=== PATIENT | female | born 1960 | race Caucasian/White ===

== ENCOUNTER 2016-12-29 15:13 | Emergency (ER) | payer BC ==
[2016-12-29 15:29] VITALS: TEMP 98.7
--- NOTE | 2016-12-29 15:46 | ED ---
Abdominal Pain HPI - General Chief Complaint: Abdominal Pain Stated Complaint: ABdominal Pain Time Seen by Provider: 12/29/16 15:31 Source: patient Mode of arrival: ambulatory Limitations: no limitations - History of Present Illness Initial Comments: Barbara is a 56-year-old female with a past medical history of diverticulitis who presents to the emergency department for evaluation of left lower quadrant abdominal pain for 3 days duration. Patient reports that during last week she had 2 days of left lower quadrant abdominal pain, however that resolved. She reports that on Wednesday she again developed abdominal pain which is sharp in nature located in the left lower quadrant with no radiation. That her pain is persistent since Wednesday. She can identify no relieving factors to the pain but reports it is worse with any palpation or movement. She reports decreased oral intake and decreased appetite. She states that she's been having bowel movements normal in caliber and consistency however she has noted dark black discoloration of her stool recently. She denies taking any iron supplementation , Pepto or eating any foods that she can think of that would cause this discoloration. Patient reports she had a colonoscopy a few years ago which was normal and was advised she needs to follow-up in 10 years. She has never had endoscopy in the past. She denies any history of GI bleed in the past. Patient denies any dysuria, hematuria or history of kidney stones. She denies any fevers, chills, nausea or vomiting. She states that she's been able to keep down her home medications and is drinking plenty of fluids to stay hydrated. - Related Data Home Medications Medication Instructions Recorded Confirmed Ascorbic Acid [Vitamin C] 500 mg PO W/SUPPER 12/29/16 12/29/16 Calcium Carbonate [Calcium] 600 mg PO W/SUPPER 12/29/16 12/29/16 Cholecalciferol (Vitamin D3) 2,000 unit PO W/SUPPER 12/29/16 12/29/16 [Vitamin D3] Cyanocobalamin (Vitamin B-12) 1,000 mcg PO W/SUPPER 12/29/16 12/29/16 [Vitamin B-12] Fish Oil/Dha/Epa [Fish Oil 1,200 1 cap PO W/SUPPER 12/29/16 12/29/16 mg Fish Oil] Lisinopril-Hctz 10-12.5 mg 1 tab PO DAILY 12/29/16 12/29/16 [Zestoretic 10-12.5] Multivitamins, Thera [Multivitamin 1 tab PO W/SUPPER 12/29/16 12/29/16 (formulary)] Omeprazole 20 mg PO DAILY 12/29/16 12/29/16 Sertraline [Zoloft] 50 mg PO DAILY 12/29/16 12/29/16 Previous Rx's Medication Instructions Recorded Ciprofloxacin HCl [Cipro] 500 mg PO Q12HR #20 tablet 12/29/16 HYDROcodone/APAP 5-325MG [[place] 1 tab PO Q6HR PRN #12 tab 12/29/16 5-325] Sennosides-Docusate Sodium 1 tab PO DAILY #10 tablet 12/29/16 [Senokot-S] metroNIDAZOLE [Flagyl] 500 mg PO QID #40 tab 12/29/16 Allergies Allergy/AdvReac Type Severity Reaction Status Date / Time No Known Allergies Allergy Verified 12/29/16 15:53 Review of Systems ROS Statement: Those systems with pertinent positive or pertinent negative responses have been documented in the HPI. ROS Other: All systems not noted in ROS Statement are negative. Constitutional: Denies: fever, chills ENT: Denies: throat pain Respiratory: Denies: cough Cardiovascular: Denies: chest pain, palpitations Endocrine: Reports: fatigue Gastrointestinal: Reports: abdominal pain, melena. Denies: nausea, vomiting, diarrhea, constipation Genitourinary: Denies: urgency, dysuria, frequency, hematuria Musculoskeletal: Denies: back pain Skin: Denies: rash, lesions Neurological: Denies: headache, weakness Psychiatric: Denies: anxiety, depression Hematological/Lymphatic: Denies: easy bleeding, easy bruising Past Medical History Past Medical History: Hypertension History of Any Multi-Drug Resistant Organisms: None Reported Past Surgical History: Cholecystectomy, Hysterectomy Additional Past Surgical History / Comment(s): jaw surgery Past Psychological History: No Psychological Hx Reported Smoking Status: Current every day smoker Past Alcohol Use History: Rare Past Drug Use History: None Reported General Exam Limitations: no limitations General appearance: alert, in no apparent distress Head exam: Present: atraumatic, normocephalic, normal inspection Eye exam: Present: normal appearance, PERRL, EOMI. Absent: scleral icterus, conjunctival injection, periorbital swelling ENT exam: Present: normal exam, mucous membranes moist Neck exam: Present: normal inspection. Absent: tenderness, meningismus, lymphadenopathy Respiratory exam: Present: normal lung sounds bilaterally. Absent: respiratory distress, wheezes, rales, rhonchi, stridor Cardiovascular Exam: Present: regular rate, normal rhythm, normal heart sounds. Absent: systolic murmur, diastolic murmur, rubs, gallop, clicks GI/Abdominal exam: Present: soft, tenderness (LLQ), normal bowel sounds. Absent : distended, guarding, rebound, rigid Rectal exam: Present: normal inspection, normal rectal tone, decreased rectal tone, heme (-) stool. Absent: heme (+) stool, bloody stool, fecal impaction, hemorrhoids, mass, tenderness Extremities exam: Present: normal inspection, full ROM, normal capillary refill. Absent: tenderness, pedal edema, joint swelling, calf tenderness Back exam: Present: normal inspection. Absent: tenderness Neurological exam: Present: alert, oriented X3, CN II-XII intact Psychiatric exam: Present: normal affect, normal mood Skin exam: Present: warm, dry, intact, normal color. Absent: rash Course Vital Signs 12/29/16 12/29/16 15:27 17:23 Temperature 98.7 F Pulse Rate 83 81 Respiratory 20 16 Rate Blood Pressure 148/69 134/67 O2 Sat by Pulse 99 99 Oximetry - Reevaluation(s) Reevaluation #1: Patient reevaluated, sitting comfortably in bed. CT results were discussed with the patient, advised that she has an uncomplicated case of sigmoid diverticulitis. Patient states that she feels comfortable being discharged home with oral antibiotics and pain medications. States she has been able to tolerate oral intake without difficulty further 3 days despite the pain. 12/29/16 17:41 Reevaluation #2: Normal rectal exam with heme-negative stool 12/29/16 17:52 Medical Decision Making - Medical Decision Making The patient was seen and evaluated, vital signs were reviewed History was obtained from the patient History and physical exam are concerning for diverticulitis, labs and CT were ordered Condition declined analgesia at initial presentation Upon being transferred to CT patient states her pain is worsening and she would like something for analgesia. IV morphine ordered Labs and CT reviewed, CT reveals acute sigmoid diverticulitis without perforation or abscess The results were discussed with the patient who expresses understanding of the diagnosis that she has experienced diverticulitis in the past. Patient states she feels she is well enough to be discharged home with oral antibiotics and pain medication. I advised the patient that while taking pain medication she needs to take a stool softener to prevent development of any constipation. Patient is breast understanding of this. Russians pertaining to care were answered to the best of my ability patient was discharged home in stable condition with prescriptions for Cipro, Flagyl, [place] and Senokot. - Lab Data Result diagrams: 12/29/16 15:45 12/29/16 15:45 Lab Results 12/29/16 12/29/16 12/29/16 Range/Units 15:45 15:45 15:45 WBC 12.1 H (3.8-10.6) k/uL RBC 4.56 (3.80-5.40) m/uL Hgb 13.2 (11.4-16.0) gm/dL Hct 39.7 (34.0-46.0) % MCV 87.0 (80.0-100.0) fL MCH 29.0 (25.0-35.0) pg MCHC 33.4 (31.0-37.0) g/dL RDW 13.9 (11.5-15.5) % Plt Count 303 (150-450) k/uL Neutrophils % 79 % Lymphocytes % 14 % Monocytes % 5 % Eosinophils % 1 % Basophils % 0 % Neutrophils # 9.5 H (1.3-7.7) k/uL Lymphocytes # 1.7 (1.0-4.8) k/uL Monocytes # 0.6 (0-1.0) k/uL Eosinophils # 0.1 (0-0.7) k/uL Basophils # 0.1 (0-0.2) k/uL Sodium 139 (137-145) mmol/L Potassium 3.9 (3.5-5.1) mmol/L Chloride 105 (98-107) mmol/L Carbon Dioxide 24 (22-30) mmol/L Anion Gap 10 mmol/L BUN 19 H (7-17) mg/dL Creatinine 0.68 (0.52-1.04) mg/dL Est GFR (MDRD) Af Amer >60 (>60 ml/min/1.73 sqM) Est GFR (MDRD) Non-Af >60 (>60 ml/min/1.73 sqM) Glucose 85 (74-99) mg/dL Calcium 9.1 (8.4-10.2) mg/dL Urine Color Yellow Urine Appearance Clear (Clear) Urine pH 5.5 (5.0-8.0) Ur Specific [place] 1.025 (1.001-1.035) Urine Protein Trace H (Negative) Urine Glucose (UA) Negative (Negative) Urine Ketones Negative (Negative) Urine Blood Negative (Negative) Urine Nitrite Negative (Negative) Urine Bilirubin Negative (Negative) Urine Urobilinogen <2.0 (<2.0) mg/dL Ur Leukocyte Esterase Negative (Negative) Stool Occult Blood (Negative) 12/29/16 Range/Units 16:50 WBC (3.8-10.6) k/uL RBC (3.80-5.40) m/uL Hgb (11.4-16.0) gm/dL Hct (34.0-46.0) % MCV (80.0-100.0) fL MCH (25.0-35.0) pg MCHC (31.0-37.0) g/dL RDW (11.5-15.5) % Plt Count (150-450) k/uL Neutrophils % % Lymphocytes % % Monocytes % % Eosinophils % % Basophils % % Neutrophils # (1.3-7.7) k/uL Lymphocytes # (1.0-4.8) k/uL Monocytes # (0-1.0) k/uL Eosinophils # (0-0.7) k/uL Basophils # (0-0.2) k/uL Sodium (137-145) mmol/L Potassium (3.5-5.1) mmol/L Chloride (98-107) mmol/L Carbon Dioxide (22-30) mmol/L Anion Gap mmol/L BUN (7-17) mg/dL Creatinine (0.52-1.04) mg/dL Est GFR (MDRD) Af Amer (>60 ml/min/1.73 sqM) Est GFR (MDRD) Non-Af (>60 ml/min/1.73 sqM) Glucose (74-99) mg/dL Calcium (8.4-10.2) mg/dL Urine Color Urine Appearance (Clear) Urine pH (5.0-8.0) Ur Specific [place] (1.001-1.035) Urine Protein (Negative) Urine Glucose (UA) (Negative) Urine Ketones (Negative) Urine Blood (Negative) Urine Nitrite (Negative) Urine Bilirubin (Negative) Urine Urobilinogen (<2.0) mg/dL Ur Leukocyte Esterase (Negative) Stool Occult Blood Negative (Negative) Disposition Clinical Impression: Diverticulitis Disposition: HOME SELF-CARE Condition: Good Instructions: Diverticulitis (ED) Prescriptions: Ciprofloxacin HCl [Cipro] 500 mg PO Q12HR #20 tablet HYDROcodone/APAP 5-325MG [[place] 5-325] 1 tab PO Q6HR PRN #12 tab PRN Reason: Pain metroNIDAZOLE [Flagyl] 500 mg PO QID #40 tab Sennosides-Docusate Sodium [Senokot-S] 1 tab PO DAILY #10 tablet Referrals: Wilberto Friedman MD [Primary Care Provider] - 1-2 days
[2016-12-29] MEDS ORDERED: RX INFO: IV CONTRAST WAS GIVEN 1 EACH MISC MISCELLANE PRN (15:47)
[2016-12-29] MEDS ORDERED: SODIUM CHLORIDE 0.9% 1,000 ML IV ONE (15:47)
[2016-12-29 16:04] LABS: Appearance,Urine Clear (Clear); Bilirubin,Urine Negative (Negative); Glucose,Urine (UA) Negative (Negative); Ketones,Urine Negative (Negative); Leukocyte Esterase,Urine Negative (Negative); Nitrite,Urine Negative (Negative); PH, Urine 5.5 (5.0-8.0); Protein,Urine Trace (Negative); Specific Gravity,Urine 1.025 (1.001-1.035); UA Billing (MACRO vs. MICRO) CHEM; Urobilinogen,Urine <2.0 mg/dL (<2.0)
[2016-12-29 16:05] LABS: Basophils # (A) 0.1 k/uL (0-0.2); Basophils % (A) 0 %; CH 29.1; CHCM 33.7; Eosinophils # (A) 0.1 k/uL (0-0.7); Eosinophils % (A) 1 %; HCT 39.7 % (34.0-46.0); HDW 2.36; HGB 13.2 gm/dL (11.4-16.0); Luc # (Auto) 0.13; Luc % (Auto) 1; Lymphocytes # (A) 1.7 k/uL (1.0-4.8); Lymphocytes % (A) 14 %; MCHC 33.4 g/dL (31.0-37.0); Mean Platelet Volume 7.3; Monocytes # (A) 0.6 k/uL (0-1.0); Monocytes % (A) 5 %; Neutrophils # (A) 9.5 k/uL (1.3-7.7); Neutrophils % (A) 79 %; RBC 4.56 m/uL (3.80-5.40); RDW 13.9 % (11.5-15.5); WBC 12.1 k/uL (3.8-10.6); WBC (Perox) 11.43
[2016-12-29 16:12] LABS: Anion Gap 10 mmol/L; Blood Urea Nitrogen 19 mg/dL (7-17); Calcium 9.1 mg/dL (8.4-10.2); Carbon Dioxide 24 mmol/L (22-30); Chloride 105 mmol/L (98-107); Glucose 85 mg/dL (74-99); Non-African American GFR(MDRD) >60 (>60 ml/min/1.73 sqM); Potassium 3.9 mmol/L (3.5-5.1); Sodium 139 mmol/L (137-145)
[2016-12-29] MEDS ORDERED: MORPHINE SULFATE 4 MG/ML SYRINGE IV ONE (16:55)
--- NOTE | 2016-12-29 17:04 | CT ---
EXAMINATION TYPE: CT abdomen pelvis w con DATE OF EXAM: 12/29/2016 COMPARISON: NONE HISTORY: LLQ pain with dark stool CT DLP: 2615.1 mGycm Automated exposure control for dose reduction was used. TECHNIQUE: Helical acquisition of images was performed from the lung bases through the pelvis. CONTRAST: Performed without Oral Contrast and with IV Contrast, patient injected with 100 mL of Omnipaque 300. FINDINGS: Lung bases are clear. There is no pleural effusion. Liver spleen pancreas appear normal. Bile ducts are not dilated. There are clips from cholecystectomy . There is no adrenal mass. Kidneys show satisfactory contrast opacification. There is no hydronephrosi s. There is some fat stranding and inflammatory changes in the proximal sigmoid colon. There are nume masha sigmoid diverticula. Bladder distends smoothly. There is no free fluid in the pelvis. Appendix a ppears normal. There is no retroperitoneal adenopathy. I see no bony destructive process. Lumbar spine is intact. IMPRESSION: INFLAMMATORY CHANGES AROUND THE PROXIMAL SIGMOID COLON WITH SOME WALL THICKENING CONSISTENT WITH ACUT E DIVERTICULITIS. NO ABSCESS. NUMEROUS SIGMOID DIVERTICULA.
[2016-12-29 17:23] VITALS: BP 134/67; PULSE 81; RESP 16
[2016-12-29] MEDS ORDERED: CIPROFLOXACIN HCL 500 MG TAB PO STA (17:26)
[2016-12-29] MEDS ORDERED: metroNIDAZOLE 500 MG TAB PO STA (17:26)
== END 2016-12-29 18:23 | disposition home or self-care (01) ==
LOC: EC 15:13
DX: K57.32 Diverticulitis of large intestine without perforation or abscess without bleeding (principal); I10 Essential (primary) hypertension; F17.200 Nicotine dependence, unspecified, uncomplicated; Z90.49 Acquired absence of other specified parts of digestive tract; Z90.710 Acquired absence of both cervix and uterus; Z79.899 Other long term (current) drug therapy
CPT/HCPCS: 36415; 80048; 85025; 82272; 81003; 74177; 99284; 96374; 96361 ×2; J2270; Q9967

== ENCOUNTER → 2017-03-15 | Outpatient (CLI) | payer BC ==
--- NOTE | 2017-03-15 11:27 | MM ---
Reason for exam: screening (asymptomatic). Last mammogram was performed 2 years and 10 months ago. History: Patient is postmenopausal and is nulliparous. Physical Findings: A clinical breast exam by your physician is recommended on an annual basis and results should be correlated with mammographic findings. MG Screening Mammo w CAD Bilateral CC and MLO view(s) were taken. Prior study comparison: May 03, 2014, bilateral MG screening mammo w CAD. There are scattered fibroglandular densities. There is no discrete abnormality. ASSESSMENT: Negative, BI-RAD 1 RECOMMENDATION: Routine screening mammogram of both breasts in 1 year.
== END | disposition home or self-care (01) ==
LOC: RADMAMWWP 07:05
PROVIDERS: ATTEND Family Medicine
DX: Z12.31 Encounter for screening mammogram for malignant neoplasm of breast (principal)

== ENCOUNTER → 2018-08-08 | Outpatient (CLI) | payer BC ==
--- NOTE | 2018-08-08 14:01 | MM ---
Reason for exam: screening (asymptomatic). Last mammogram was performed 1 year and 5 months ago. History: Patient is postmenopausal and is nulliparous. Physical Findings: A clinical breast exam by your physician is recommended on an annual basis and results should be correlated with mammographic findings. MG Screening Mammo w CAD Bilateral CC and MLO view(s) were taken. Prior study comparison: March 15, 2017, bilateral MG screening mammo w CAD. May 03, 2014, bilateral MG screening mammo w CAD. There are scattered fibroglandular densities. No significant changes when compared with prior studies. ASSESSMENT: Benign, BI-RAD 2 RECOMMENDATION: Routine screening mammogram of both breasts in 1 year.
== END | disposition home or self-care (01) ==
LOC: RADMAMWWP 06:53
PROVIDERS: ATTEND Family Medicine
DX: Z12.31 Encounter for screening mammogram for malignant neoplasm of breast (principal)
CPT/HCPCS: 77067

== ENCOUNTER → 2018-11-10 | Outpatient (CLI) | payer BC ==
--- NOTE | 2018-11-10 16:36 | CT ---
EXAMINATION TYPE: CT abdomen pelvis w con DATE OF EXAM: 11/10/2018 HISTORY: Left lower quadrant abdominal pain and constipation. CT DLP: 1722mGycm Automated Exposure Control for Dose Reduction was Utilized. CONTRAST: CT scan of the abdomen and pelvis is performed with IV Contrast, patient injected with 100ml mL of Is ovue 300. COMPARISON: 05/27/2017 FINDINGS: LUNG BASES: Reticular nodular opacity is seen within the lingula. Minimal right midlung atelectasis. LIVER/GB: Hepatic parenchyma is diffusely hypoattenuated in comparison to that of the spleen, most co mmonly seen in hepatic steatosis. This finding limits evaluation for hepatic masses. No gross evidenc e of hepatic mass is seen. No intrahepatic biliary ductal dilatation. Gallbladder surgically absent. PANCREAS: No significant abnormality is seen. SPLEEN: No significant abnormality is seen. ADRENALS: No significant abnormality is seen. KIDNEYS: There is a nonobstructing right renal calculus measuring 4 mm. Otherwise the kidneys enhance and excrete symmetrically without hydronephrosis. BOWEL: There is long segment sigmoid colonic wall thickening and pericolic fat stranding surrounding numerous diverticula. No pericolonic fluid collection to suggest abscess or pneumoperitoneum. No dila kane large or small bowel. Appendix is opacified and within normal limits. The UTERUS/ADNEXA: Uterus appears surgically absent. LYMPH NODES: No greater than 1cm abdominal or pelvic lymph nodes are appreciated. OSSEOUS STRUCTURES: Mild multilevel degenerative changes of the spine. IMPRESSION: 1. Acute infectious lingular pneumonia is suspected with less likely consideration of inflammatory pn eumonitis. 2. Acute uncomplicated sigmoid diverticulitis. No pneumoperitoneum or surrounding abscess. 3. Hepatic steatosis. 4. Nonobstructing right renal calculus.
== END | disposition home or self-care (01) ==
LOC: RADCTMAIN 14:23
PROVIDERS: ATTEND Physician Assistant
DX: K57.32 Diverticulitis of large intestine without perforation or abscess without bleeding (principal); N20.0 Calculus of kidney; K76.0 Fatty (change of) liver, not elsewhere classified
CPT/HCPCS: 74177; Q9967

== ENCOUNTER → 2020-06-17 | Outpatient (CLI) | payer BC ==
--- NOTE | 2020-06-17 13:52 | CT ---
EXAMINATION TYPE: CT abdomen pelvis w con DATE OF EXAM: 06/17/2020 HISTORY: Pelvic pain x 6 days. Nausea, vomiting, diarrhea and painful urination. CT DLP: 2052.4mGycm Automated Exposure Control. Dose Reduction was Utilized. CONTRAST: CT scan of the abdomen and pelvis is performed with IV Contrast, patient injected with 100 mL of Isov ue M300. COMPARISON: CT abdomen and pelvis November 10, 2018 FINDINGS: LUNG BASES: Stable deformity anterolateral right rib axial image 4. LIVER/GB: Cholecystectomy clips are redemonstrated. Liver remains diffusely low dense. PANCREAS: No significant abnormality is seen. SPLEEN: No significant abnormality is seen. ADRENALS: No significant abnormality is seen. KIDNEYS: Symmetric cortical medullary uptake and excretion without hydronephrosis seen bilaterally. S table 3 to 4 mm nonobstructing calculus right kidney lower pole level axial image 38 BOWEL: Oral contrast extends to the level of left colon on current study. Sigmoid colonic diverticulo sis redemonstrated. There is focal mild/moderate ill-defined fluid and fat stranding in the central u pper pelvis axial image 60 at level of the proximal sigmoid colon consistent with recurrent uncomplic ated acute moderate diverticulitis. No free air. No well-formed fluid collection. UTERUS/ADNEXA: Uterus surgically absent or markedly atrophic. Stable left-sided pelvic phlebolith on axial image 69. LYMPH NODES: No greater than 1cm abdominal or pelvic lymph nodes are appreciated. OSSEOUS STRUCTURES: Mild height loss along the superior T11 endplate. OTHER: No significant additional abnormality is seen. IMPRESSION: CT findings consistent with fairly moderate recurrent uncomplicated acute diverticulitis proximal sigmoid colon in the anterior upper pelvis as detailed above.
== END | disposition home or self-care (01) ==
LOC: RADCTMAIN 11:15
PROVIDERS: ATTEND Nurse Practitioner Family
DX: R10.32 Left lower quadrant pain (principal)
CPT/HCPCS: 74177; Q9967 ×2

== ENCOUNTER 2020-07-19 08:26 | Emergency (ER) | payer BC ==
[2020-07-19] MEDS ORDERED: SODIUM CHLORIDE 0.9% 1,000 ML IV STA (08:45)
[2020-07-19] MEDS ORDERED: ONDANSETRON 4 MG/2 ML VIAL IVP STA (08:45)
[2020-07-19] MEDS ORDERED: MORPHINE SULFATE 4 MG/ML SYRINGE IV STA (08:45)
[2020-07-19 08:59] VITALS: BP 168/87; PULSE 80; RESP 18; TEMP 98.5
[2020-07-19 09:02] LABS: Basophils # (A) 0.1 k/uL (0-0.2); Basophils % (A) 1 %; Eosinophils # (A) 0.2 k/uL (0-0.7); Eosinophils % (A) 2 %; HCT 38.2 % (34.0-46.0); HGB 13.1 gm/dL (11.4-16.0); Lymphocytes # (A) 1.7 k/uL (1.0-4.8); Lymphocytes % (A) 16 %; MCH 29.2 pg (25.0-35.0); MCHC 34.2 g/dL (31.0-37.0); MCV 85.5 fL (80.0-100.0); Mean Platelet Volume 7.5; Monocytes # (A) 0.5 k/uL (0-1.0); Monocytes % (A) 5 %; Neutrophils # (A) 7.7 k/uL (1.3-7.7); Neutrophils % (A) 76 %; Platelet Count 226 k/uL (150-450); RBC 4.47 m/uL (3.80-5.40); RDW 13.4 % (11.5-15.5); WBC 10.2 k/uL (3.8-10.6)
[2020-07-19 09:15] LABS: ALT 26 U/L (4-34); AST 25 U/L (14-36); African American GFR (CKD) >90 (>60 ml/min/1.73 sqM); Albumin 4.2 g/dL (3.5-5.0); Alkaline Phosphatase 85 U/L (38-126); Amylase 55 U/L (30-110); Anion Gap 8 mmol/L; Blood Urea Nitrogen 23 mg/dL (7-17); Calcium 9.1 mg/dL (8.4-10.2); Carbon Dioxide 25 mmol/L (22-30); Chloride 104 mmol/L (98-107); Glucose 163 mg/dL (74-99); Lipase 112 U/L (23-300); Non-African American GFR(CKD) >90 (>60 ml/min/1.73 sqM); Potassium 3.7 mmol/L (3.5-5.1); Sodium 137 mmol/L (137-145); Total Bilirubin 0.5 mg/dL (0.2-1.3); Total Protein 6.8 g/dL (6.3-8.2)
--- NOTE | 2020-07-19 09:43 | CT ---
EXAMINATION TYPE: CT abdomen pelvis w con DATE OF EXAM: 07/19/2020 HISTORY: LLQ pain CT DLP: 2150.3mGycm Automated Exposure Control for Dose Reduction was Utilized. CONTRAST: CT scan of the abdomen and pelvis is performed without oral but with IV Contrast, patient injected wi th 100 mL of Isovue 300. COMPARISON: CT abdomen and pelvis June 17, 2020 FINDINGS: LUNG BASES: No significant abnormality is appreciated. LIVER/GB: Cholecystectomy clips. Visualized liver is low dense consistent with diffuse fatty infiltra tion. PANCREAS: No significant abnormality is seen. SPLEEN: No significant abnormality is seen. ADRENALS: No significant abnormality is seen. KIDNEYS: Subcentimeter lesion medially upper pole left kidney too small to further characterize. Symm etric cortical uptake and excretion without hydronephrosis seen bilaterally. There is a 5 mm nonobstr ucting calculus lower pole right kidney coronal image 66 redemonstrated. Few scattered bilateral pelv ic phleboliths. BOWEL: Suboptimal evaluation bowel without enteric contrast. No suspicious small large bowel dilatati on. Some scattered colonic diverticula greatest in the sigmoid colon. [id number] ill-defined fl uid and fat stranding with mild/moderate wall thickening in the left upper pelvis at junction of left and sigmoid colon. No free air. No well-formed fluid collection. UTERUS/ADNEXA: Uterus surgically absent. Few scattered small pelvic phleboliths bilaterally redemonst rated. LYMPH NODES: No greater than 1cm abdominal or pelvic lymph nodes are appreciated. OSSEOUS STRUCTURES: No significant abnormality is seen. OTHER: No significant additional abnormality is seen. IMPRESSION: There is recurrent mild to moderate uncomplicated acute diverticulitis in the left upper pelvis at junction of left and sigmoid colon. The area is slightly more proximal in location to site of acute diverticulitis on recent CT.
--- NOTE | 2020-07-19 09:59 | ED ---
Abdominal Pain HPI - General Chief Complaint: Abdominal Pain Stated Complaint: Abd Pain Time Seen by Provider: 07/19/20 08:35 Source: patient, RN notes reviewed Mode of arrival: ambulatory Limitations: no limitations - History of Present Illness Initial Comments: Patient is a 59-year-old female that presented to the emergency room complaining of left lower quadrant pain. She did note that she has a history of diverticulitis. She did have a flareup about 4 weeks ago and refused admission. She stated that she took all the antibiotics and it went away but she is currently experiencing a flareup. She has also complained of nausea vomiting diarrhea. She said her pain is about 8 out of 10 currently this been constant since last night. She stated that nothing helps the pain nothing made the pain worse. She was in no apparent distress or pain while sitting in the bed. patient noted no blood. She denied any chest pain lightheadedness dizziness shortness of breath fever fatigue chills. Patient stated to pattern chart writer and nurse that she did not want to be admitted at all if possible. - Related Data Home Medications Medication Instructions Recorded Confirmed Ascorbic Acid [Vitamin C] 500 mg PO DAILY 12/29/16 07/19/20 Calcium Carbonate [Calcium] 600 mg PO DAILY 12/29/16 07/19/20 Cyanocobalamin (Vitamin B-12) 1,000 mcg PO DAILY 12/29/16 07/19/20 [Vitamin B-12] Lisinopril-Hctz 10-12.5 mg 1 tab PO DAILY 12/29/16 07/19/20 [Zestoretic 10-12.5] Multivitamins, Thera [Multivitamin 1 tab PO W/SUPPER 12/29/16 07/19/20 (formulary)] Omeprazole 20 mg PO DAILY 12/29/16 07/19/20 Sertraline [Zoloft] 50 mg PO DAILY 12/29/16 07/19/20 L.acidoph,Paracasei, B.lactis 2 cap PO DAILY 07/19/20 07/19/20 [Probiotic] Previous Rx's Medication Instructions Recorded Amoxic-Pot Clav 875-125Mg 1 tab PO Q12HR 10 Days #20 tab 07/19/20 [Augmentin 875-125] Allergies Allergy/AdvReac Type Severity Reaction Status Date / Time No Known Allergies Allergy Verified 07/19/20 08:33 Review of Systems ROS Statement: Those systems with pertinent positive or pertinent negative responses have been documented in the HPI. ROS Other: All systems not noted in ROS Statement are negative. Past Medical History Past Medical History: Hypertension Additional Past Medical History / Comment(s): diverticulitis History of Any Multi-Drug Resistant Organisms: None Reported Past Surgical History: Cholecystectomy, Hysterectomy Additional Past Surgical History / Comment(s): jaw surgery Past Psychological History: No Psychological Hx Reported Smoking Status: Vaper Past Alcohol Use History: Occasional, Rare Past Drug Use History: None Reported General Exam Limitations: no limitations General appearance: alert, in no apparent distress, obese Head exam: Present: atraumatic, normocephalic, normal inspection Eye exam: Present: normal appearance, PERRL, EOMI. Absent: scleral icterus, conjunctival injection, periorbital swelling ENT exam: Present: normal exam, mucous membranes moist Neck exam: Present: normal inspection. Absent: tenderness, meningismus, lymphadenopathy Respiratory exam: Present: normal lung sounds bilaterally. Absent: respiratory distress, wheezes, rales, rhonchi, stridor Cardiovascular Exam: Present: regular rate, normal rhythm, normal heart sounds. Absent: systolic murmur, diastolic murmur, rubs, gallop, clicks GI/Abdominal exam: Present: soft, tenderness (Left lower quadrant, epigastric that radiated to left lower quadrant.), hypoactive bowel sounds. Absent: diste nded, guarding, rebound, rigid Extremities exam: Present: normal inspection, full ROM, normal capillary refill. Absent: tenderness, pedal edema, joint swelling, calf tenderness Back exam: Present: normal inspection Neurological exam: Present: alert, oriented X3, CN II-XII intact Psychiatric exam: Present: normal affect, normal mood Skin exam: Present: warm, dry, intact, normal color. Absent: rash Course Vital Signs 07/19/20 08:31 Temperature 98.5 F Pulse Rate 80 Respiratory 18 Rate Blood Pressure 168/87 O2 Sat by Pulse 98 Oximetry Medical Decision Making - Medical Decision Making 59-year-old female complaining of an acute diverticulitis flareup. Patient has a history of diverticulitis. Labs ordered: Unremarkable CT of the abdomen with contrast ordered Pain medication, nausea medication given 1 L of normal saline given as bolus. Case discussed with Dr. Jones, was decided patient discharged home with antibiotics. - Lab Data Result diagrams: 07/19/20 08:51 07/19/20 08:51 Lab Results 07/19/20 07/19/20 Range/Units 08:51 08:51 WBC 10.2 (3.8-10.6) k/uL RBC 4.47 (3.80-5.40) m/uL Hgb 13.1 (11.4-16.0) gm/dL Hct 38.2 (34.0-46.0) % MCV 85.5 (80.0-100.0) fL MCH 29.2 (25.0-35.0) pg MCHC 34.2 (31.0-37.0) g/dL RDW 13.4 (11.5-15.5) % Plt Count 226 (150-450) k/uL MPV 7.5 Neutrophils % 76 % Lymphocytes % 16 % Monocytes % 5 % Eosinophils % 2 % Basophils % 1 % Neutrophils # 7.7 (1.3-7.7) k/uL Lymphocytes # 1.7 (1.0-4.8) k/uL Monocytes # 0.5 (0-1.0) k/uL Eosinophils # 0.2 (0-0.7) k/uL Basophils # 0.1 (0-0.2) k/uL Sodium 137 (137-145) mmol/L Potassium 3.7 (3.5-5.1) mmol/L Chloride 104 (98-107) mmol/L Carbon Dioxide 25 (22-30) mmol/L Anion Gap 8 mmol/L BUN 23 H (7-17) mg/dL Creatinine 0.69 (0.52-1.04) mg/dL Est GFR (CKD-EPI)AfAm >90 (>60 ml/min/1.73 sqM) Est GFR (CKD-EPI)NonAf >90 (>60 ml/min/1.73 sqM) Glucose 163 H (74-99) mg/dL Calcium 9.1 (8.4-10.2) mg/dL Total Bilirubin 0.5 (0.2-1.3) mg/dL AST 25 (14-36) U/L ALT 26 (4-34) U/L Alkaline Phosphatase 85 (38-126) U/L Total Protein 6.8 (6.3-8.2) g/dL Albumin 4.2 (3.5-5.0) g/dL Amylase 55 (30-110) U/L Lipase 112 (23-300) U/L - Radiology Data Radiology results: report reviewed, image reviewed There is recurrent mild to moderate uncomplicated acute diverticulitis in the left upper pelvis at junction of left and sigmoid colon. The area is slightly more proximal location decided of acute diverticulitis on recent CT. Disposition Clinical Impression: Abdominal pain, Diverticulitis Disposition: HOME SELF-CARE Instructions (If sedation given, give patient instructions): Abdominal Pain (ED), Diverticulitis (ED), Diverticulitis Diet (ED) Additional Instructions: Please return to the Emergency Department if symptoms worsen or any other concerns. Clear liquid diet for the next 2 days. Return if symptoms worsen or remain constant. Take antibiotics as instructed. Follow diverticulitis diet handout. Follow with primary care 1-2 days. Prescriptions: Amoxic-Pot Clav 875-125Mg [Augmentin 875-125] 1 tab PO Q12HR 10 Days #20 tab Is patient prescribed a controlled substance at d/c from ED?: No Referrals: Wilberto Friedman MD [Primary Care Provider] - 1-2 days Time of Disposition: 10:32
== END 2020-07-19 10:56 | disposition home or self-care (01) ==
LOC: EC 08:26
DX: K57.32 Diverticulitis of large intestine without perforation or abscess without bleeding (principal); I10 Essential (primary) hypertension; F17.290 Nicotine dependence, other tobacco product, uncomplicated; Z79.899 Other long term (current) drug therapy; Z90.49 Acquired absence of other specified parts of digestive tract; Z90.710 Acquired absence of both cervix and uterus
CPT/HCPCS: 36415; 80053; 82150; 83690; 85025; 74177; 99284; 96374; 96375; 96361; J2270; J2405; Q9967

== ENCOUNTER 2021-03-21 07:18 | Day surgery (SDC) | payer BC ==
[2021-03-19 14:09] VITALS: BMI 43.2
[~2021-03-21 07:18] MED LIST: LACTATED RINGERS 1,000 ML IV SCH
[2021-03-21] MEDS ORDERED: LIDOCAINE 1% (10MG/ML) FOR IV START INTRADERMA ONE (07:50)
[2021-03-21 07:52] VITALS: RESP 16; TEMP 98
[2021-03-21] MEDS ORDERED: PROPOFOL 10 MG/ML 20 ML VIAL IV ONE (08:17)
--- NOTE | 2021-03-21 08:38 | P.PCN ---
Date of Procedure: 03/21/21 Procedure(s) Performed: BRIEF HISTORY: Patient is a 60-year-old pleasant white female scheduled for an elective colonoscopy as a part of screening for colorectal neoplasia and family history of colon cancer. Her brother was diagnosed with colon cancer at age 55 PROCEDURE PERFORMED: Colonoscopy with snare polypectomy . PREOPERATIVE DIAGNOSIS: .screening for colon cancer and family history of colon cancer IV sedation per Anesthesia. PROCEDURE: After informed consent was obtained, the patient, was brought into the endoscopy unit. IV sedation was administered by Anesthesia under continuous monitoring. Digital rectal examination was normal. Initially the Olympus CF-160 flexible video colonoscope was then inserted in the rectum, gradually advanced into the cecum without any difficulty. Careful examination was performed as the scope was gradually being withdrawn. Ileocecal valve and the appendiceal orifice were visualized and appeared normal. Prep was excellent. Mucosa of the cecum, ascending colon, transverse colon, descending colon, sigmoid colon, and rectum appeared normal. in the proximal rectum there was a 5 mm polyp that was removed by snare polypectomy. Scattered sigmoid diverticulosis seen. Retroflexion was performed in the rectum and no lesions were seen. The patient tolerated the procedure well. IMPRESSION: 5 mm rectal polyp status post polypectomy Scattered sigmoid diverticulosis RECOMMENDATIONS: Findings of this examination were discussed with the patient a s well as her family. She was advised to follow with the biopsy doesn't have a repeat surveillance colonoscopy in 5 years.
[2021-03-21 08:58] VITALS: BP 147/81; PULSE 66
== END 2021-03-21 09:12 | disposition home or self-care (01) ==
LOC: ORWHC2ENDO 07:18
PROVIDERS: ATTEND Internal Medicine Gastroenterology
DX: Z12.11 Encounter for screening for malignant neoplasm of colon (principal); K57.30 Diverticulosis of large intestine without perforation or abscess without bleeding; K62.1 Rectal polyp; Z80.0 Family history of malignant neoplasm of digestive organs; I10 Essential (primary) hypertension; E78.5 Hyperlipidemia, unspecified; F32.9 Major depressive disorder, single episode, unspecified; K21.9 Gastro-esophageal reflux disease without esophagitis; U07.0 Vaping-related disorder
CPT/HCPCS: 45385; 88305; J2704

== ENCOUNTER → 2021-06-03 | Outpatient (CLI) | payer BC ==
--- NOTE | 2021-06-04 13:57 | MM ---
Reason for exam: screening (asymptomatic). Last mammogram was performed 2 years and 10 months ago. History: Patient is postmenopausal and is nulliparous. Physical Findings: A clinical breast exam by your physician is recommended on an annual basis and results should be correlated with mammographic findings. MG 3D Screening Mammo W/Cad Bilateral CC, MLO, and XCCL view(s) were taken. Prior study comparison: August 08, 2018, bilateral MG screening mammo w CAD. March 15, 2017, bilateral MG screening mammo w CAD. There are scattered fibroglandular densities. No significant changes when compared with prior studies. ASSESSMENT: Benign, BI-RAD 2 RECOMMENDATION: Routine screening mammogram of both breasts in 1 year.
== END | disposition home or self-care (01) ==
LOC: RADMAMWWP 07:16
PROVIDERS: ATTEND Family Medicine
DX: Z12.31 Encounter for screening mammogram for malignant neoplasm of breast (principal); Z78.0 Asymptomatic menopausal state
CPT/HCPCS: 77063; 77067